=== PATIENT | male | born 1980 | race Caucasian/White ===

== ENCOUNTER → 2017-08-17 | Day surgery (SDC) | payer OTHER ==
[~2017-08-17] VITALS: Ht 190.5 cm; Wt 95.0 kg
[~2017-08-17] MED LIST: CHLO500T24 PO; GABA-502 PO; HYDR-4003 PO; Lactated Ringer's 1,000 ML IV ONE; Lactated Ringer's 1,000 ML IV SCH; MARIJUANA; MetoCLOpramide 5 mg/mL 2 mL Inj IVPUSH PRN; OMEP20TA86 PO; Ondansetron 2 mg/mL 2 mL Inj IVPUSH PRN
[2017-08-17 11:51] VITALS: BP 126/82; PULSE 88; RESP 16; O2SAT 98
--- NOTE | 2017-08-17 13:38 | PCM.HPANE ---
Patient Data Date of Service: Aug 17, 2017 Surgeon Admitting Provider: Attending Provider:Giuseppe Polo MD Primary Care Physician:Hali Henriquez Other Provider:David Hickey Anesthesia Reason for Visit Reflux Esophagitis Ht/WT & BMI Height (Feet): 6 Height (Inches): 3 Weight (Kilograms): 95 Body Mass Index 26.00 Allergies Coded Allergies: No Known Drug Allergies (Verified Allergy, Unknown, 08/15/17) Past Anesthesia History Anesthesia History: Denies:: Abnormal Airway, Anesthesia Reactions, Difficult Intubation, Fam Anesthesia Reaction, Fam Malignant Hypertherm, Malignant Hyperthermia Diabetes History Hx Diabetes?: No MRSA MRSA: No Medications Reported Medications [Marijuana] No Conflict Check 08/17/17 Omeprazole 20 Mg Tablet.dr20 Mg PO BID Ref 0 08/17/17 Discontinued Reported Medications Hydrocodone-Acetaminophen 5-325 mg 1 Each Tablet1 Tablet PO Q4H PRN For Pain Ref 0 08/15/17 Gabapentin 300 Mg [id number] Mg PO TID Ref 0 08/15/17 Chlorzoxazone 500 Mg [id number] Mg PO TID 08/15/17 History History of ENT Problems?: No HEENT History: Positive for:: Dysphagia Denies:: Abnormal Airway Difficult Intubation Hearing Problem Denture Type: None Teeth Condition: Within Normal Limits Hx of Heart Problems?: Yes Cardiovascular History: Positive for:: Pacemaker Denies:: AICD Hx of Respiratory Problem?: No Respiratory History: Denies:: Asthma Hx Neurologic Problems?: No Neurological History: Denies:: CVA Hx of GI Problems?: No Other GI Pertinent History: MATERNAL UNCLE WITH ESOPHAGEAL CANCER, IN HIS 40'S Hx of Problems?: No Hx Musculoskeletal Problems?: No Musculoskeletal History: Denies:: Fibromyalgia Joint Replacement Hx of Psycho/Social Problems?: No Psycho Social History: Positive for:: Anxiety Hx Surgeries?: Yes (PACEMAKER, TONSILECTOMY) Hx Any Other Health Problems?: Yes Hx Diabetes: No Hx Alcohol Use: No Stop/Bang Treated for Sleep Apnea?: No Do You Have a CPAP Machine?: No S-Snoring: Do You Snore Loudly: No T-Tired: feel tired, fatigued: Yes O-Obsered: Observed not breath: No P-Blood Pressure: treated: No B- Body Mass Index > 35 kg/m2: No A- Age over 50: No N- Neck Large Circumference: No G- Gender Male: Yes YAKOV Total Score: 2 Risk Assessment Category Category 1A: Patient has history of documented sleep apnea, and HAS NOT received any narcotic, sedative or anesthesia administration during this stay. Category 1B: Patient has history of documented sleep apnea, and HAS received any narcotic , sedative or anesthesia administration during this stay Category 2: Patient has SUSPECTED Obstructive Sleep Apnea, and HAS received any narcotic , sedative or anesthesia administration during this stay. Category 3: Patient has SUSPECTED Obstructive Sleep Apnea and HAS NOT received narcotic, sedative or anesthesia administration during this stay. Category 4: Outpatient in Procedural Areas with known sleep apnea or who screen positive for High Risk via the STOP/BANG questionnaire. Exam Exam Vital Signs Vital Signs Date Time Temp Pulse Resp B/P Pulse Ox O2 Delivery O2 Flow Rate FiO2 08/17/17 11:51 36.7 88 16 126/82 98 Room Air General Appearance: Alert, Oriented X3, Cooperative HEENT/AIRWAY: MP 1 Lungs: Clear to Auscultation Heart: Exam Unremarkable Plan Impression Patient chart reviewed, patient interviewed and anesthestic plan with risks, benefits, and alternatives discussed, and informed consent obtained. NPO per Anesth. Guidelines: Yes ASA Physical Status: ASA2 Mod Systemic Disease Anesthetic Plan: MAC Bene/Risks/Altern/Consents: Yes HP Complete Prior to Induction: Yes Ayad Nava MD Aug 17, 2017 13:37
--- NOTE | 2017-08-17 13:57 | PCM.ENDEGD ---
EGD Date of Service: Aug 17, 2017 Physician Giuseppe Polo MD Pre Procedure Diagnosis: Reflux Post Procedure Dx & Findings: Possible Chambers's. Gastric nodule. Procedure Esophagogastroduodenoscopy PROCEDURE IN DETAIL: Sedation given by anesthesiology After proper sedation, Olympus video endoscope was inserted into patient's mouth and esophagus was successfully intubated. Scope introduced esophagus. Esophagus showed normal shiny whitish mucosa consistent with squamous cell component. Z line was at 40 cm from the incisors. Less than 2 cm of irregularity noted. Unclear whether or not this is salmon-colored mucosa. Narrow banding was not definitive either. However we took 4 quadrant biopsies every 2 cm per protocol for possible Chambers's. Scope then advanced to the stomach. Stomach showed normal shiny mucosa with normal appearing rugae folds without any ulcer mass erosion. In the body antral junction, there was a 1 cm prominent gastric bump. It felt very soft. No mucosal abnormality noted. Biopsies obtained. Cardia fundus body antrum pylorus were all visualized. Retroflexion was done. Stomach was easily inflated and deflatable using air. Scope further events to the distal duodenum. Duodenum revealed normal villous structures with normal appearing folds without any mass ulcer erosion. Impression Possible Chambers's Mucosal bump Recommendation Await biopsies Presedation Assessment Risks and Benefits Informed consent was obtained from the patient after all risks and benefits including but not limited to drug reaction, infection, pain, bleeding, perforation, as well as alternatives were discussed. Patient monitoring Continuous pulse oximetry, cardiac monitoring, blood pressure monitoring, IV access, and oxygen at 2L per nasal cannula. Complications There were no periprocedural complications identified. Post Procedure Plan Post Procedure Recommendations 1. Restrict activities today. 2. Resume normal activities in the morning. 3. Resume medications. 4. GERD behavioral modification: - Avoid fatty, acidic, spicy, large meals - Do not lie down after meals - Do not eat or drink anything for at least 2 1/2 hours before going to bed at night - Discontinue tobacco and alcohol - Decrease or avoid caffeine - Avoid chocolate and mints - Decrease weight - Avoid aspirin and non steroidal anti-inflammatory agents (NSAID) such as Aleve, Advil, Mobic, Naproxen, Ibuprofen, etc 5. Add proton pump inhibitor. Take 30 minutes before 1st meal of the day. 6. Patient informed of normal post procedure side effects as bloating, drowsiness, blood streaking in the stool 7. If gastric biopsy reveal H.pylori, continue with appropriate treatment 8. If small bowel biopsy reveals celiac, continue with appropriate treatment 9. Please don't hesitate to call me with any questions Giuseppe Polo MD Aug 17, 2017 13:57
[2017-08-17 14:01] VITALS: BP 133/73; PULSE 79; RESP 12; O2SAT 97
--- NOTE | 2017-08-17 14:04 | PCM.ANEP1 ---
Post Anesthesia PACU Phase 1 Assessment Vital Signs Vital Signs Date Time Temp Pulse Resp B/P Pulse Ox O2 Delivery O2 Flow Rate FiO2 08/17/17 14:01 79 12 133/73 97 Room Air 08/17/17 11:51 36.7 88 16 126/82 98 Room Air Anesthetic Administered: MAC Level of Alertness: Awake, talking Pain: No Nausea or Vomiting: No CV Function & Hydration Stable: Yes Airway Device: Oxygen Delivery: Room Air Lungs: Clear to Auscultation PACU Phase 2 Assessment Patient Instructions Provided: N/A Ayad Nava MD Aug 17, 2017 14:04
[2017-08-17 14:09] VITALS: BP 138/81; PULSE 70; RESP 12; O2SAT 98
[2017-08-17 14:16] VITALS: BP 149/83; PULSE 80; RESP 14; O2SAT 100
--- NOTE | 2017-08-21 16:00 | PATH ---
SURGICAL PATHOLOGY Attending Physician:Giuseppe Polo M.D. CASE STATUS: Signed Out PATIENT NAME: KEILY FREEDMAN PID: [id number] : 1980 DATE COLLECTED:08/17/2017 00:00 SPECIMEN: 1: Gastric, Biopsy 2: Esophagus, Biopsy CLINICAL HISTORY: 1). GASTRIC NODULE 2). DISTAL ESOPHAGUS FINAL DIAGNOSIS: 1. Stomach, Biopsy: Antral-type mucosa with no diagnostic abnormality. Negative for Helicobacter organisms. Negative for intestinal metaplasia. Negative for dysplasia and malignancy. 2. Distal Esophagus, Biopsies: Squamocolumnar junctional mucosa with no diagnostic abnormality. Negative for intestinal metaplasia. Negative for dysplasia nd malignancy. ICD10: R10.9 GROSS DESCRIPTION: The specimen is received in two formalin filled containers labeled with the patient's name. 1). The specimen is labeled "gastric nodule" and consists of a 0.3 x 0.2 x 0.2 CM portion of tissue which is entirely submitted in cassette 1A. 2). The specimen is labeled "distal esophagus" and consists of 2 portions of tissue which aggregate to 0.2 x 0.2 x 0.1 CM. The specimen is entirely submitted in cassette 2A. 08/18/2017[place] MICRO DESCRIPTION: 1: Additional levels were examined. ICD-9 CODES: CPT CODES: 1: 58428 2: 18053 Electronically Signed Out Sintia Javier MD [facility] [address], [place] [address] Technical component performed at [facility], [facility] [address], [place], [address]
== END | disposition home or self-care (01) ==
LOC: END 00:33
PROVIDERS: ATTEND Internal Medicine
DX: K21.9 Gastro-esophageal reflux disease without esophagitis (principal); K31.89 Other diseases of stomach and duodenum; I49.5 Sick sinus syndrome; Z95.0 Presence of cardiac pacemaker; F41.3 Other mixed anxiety disorders; G89.4 Chronic pain syndrome; Z79.891 Long term (current) use of opiate analgesic
CPT/HCPCS: 43239; J7120